=== PATIENT | male | born 1970 | race Caucasian/White ===

== ENCOUNTER → 2017-01-12 | Outpatient (CLI) | payer OTHER | LOC: BMCIMAGING 13:27 | PROVIDERS: ATTEND Internal Medicine | DX: M25.511 Pain in right shoulder (principal); Y93.55 Activity, bike riding; V19.3XXA Pedal cyclist (driver) (passenger) injured in unspecified nontraffic accident, initial encounter; M85.88 Other specified disorders of bone density and structure, other site ==